=== PATIENT | female | born 1965 | race Caucasian/White ===

== ENCOUNTER 2016-07-13 05:16 | Emergency (ER) | payer BC ==
[2016-07-13 05:24] VITALS: O2SAT 99
[2016-07-13] MEDS ORDERED: Phenergan 25 MG INJ IV ONE (05:33)
[2016-07-13] MEDS ORDERED: TORAdol 30 mg Injection IV ONE (05:33)
[2016-07-13] MEDS ORDERED: TORAdol 30 mg Injection ONE (05:37)
[2016-07-13] MEDS ORDERED: Sodium Chloride 0.9% 1000 ML 1,000 ML ONE (05:37)
[2016-07-13] MEDS ORDERED: Phenergan 25 MG INJ ONE (05:37)
--- NOTE | 2016-07-13 05:38 | ERPHSYRPT ---
- History of Present Illness Time Seen by Provider: 07/13/16 05:23 Historian: patient Exam Limitations: no limitations Patient Subjective Stated Complaint: PT STATES SHE THINKS SHE IS PASSING A KIDNEY STONES. STATES SHE PASSED ON 3 WEEKS AGO. PT C/O PAIN TO RIGHT FLANK AREA AND RIGHT PELVIS. PT STATES SHE HAS VOMITED SEVERAL TIMES AT HOME. DENIES ANY DYSURIA. Triage Nursing Assessment: PT PINK, WARM, DRY. RESTLESS IN BED. PT AFEBRILE. Physician History: ABOUT 3 WEEKS AGO PT PASSED A KIDNEY STONE AND HAS HAD RIGHT FLANK PAIN/RIGHT LOWER ABDOMINAL PAIN SINCE WITH AN INCREASE IN PAIN SINCE LAST NIGHT; ADMITS TO VOMITING AND CHILLS SINCE LAST NIGHT; DENIES CHEST PAIN, FEVER, SHORTNESS OF AIR , DYSURIA. Allergies/Adverse Reactions: erythromycin base Allergy (Verified 07/13/16 05:24) Hx Tetanus, Diphtheria Vaccination/Date Given: Yes (UP TO DATE) Hx Influenza Vaccination/Date Given: No Hx Pneumococcal Vaccination/Date Given: No Immunizations Up to Date: Yes - Review of Systems Constitutional: Chills Abdominal/Gastrointestinal: Abdominal Pain, Vomiting, Other (RIGHT FLANK PAIN) All Other Systems: Reviewed and Negative - Past Medical History Pertinent Past Medical History: Yes Other Medical History: KIDNEY STONES - Past Surgical History Past Surgical History: Yes Female Surgical History: Lumpectomy - Social History Smoking Status: Never smoker Exposure to second hand smoke: No Drug Use: none Patient Lives Alone: No - Female History Hx Last Menstrual Period: PRE-MENOPAUSAL - Nursing Vital Signs Nursing Vital Signs: Initial Vital Signs Temperature 97.8 F Temperature Source Oral Pulse Rate 91 Respiratory Rate 18 Blood Pressure [] 151/82 Pain Intensity 2 - Physical Exam General Appearance: alert Eye Exam: eyes nml inspection Ears, Nose, Throat Exam: pharynx normal, moist mucous membranes Neck Exam: normal inspection Respiratory Exam: lungs clear Cardiovascular Exam: normal heart sounds Gastrointestinal/Abdomen Exam: soft, normal bowel sounds, No tenderness Back Exam: normal inspection, No rash Extremity Exam: normal inspection, No pedal edema Neurologic Exam: alert, cooperative Skin Exam: warm, dry SpO2 Interpretation: normal SpO2: 99 Oxygen Delivery: Room Air - Course Nursing assessment & vital signs reviewed: Yes - CT Exams Abdomen/Pelvis CT Interpretation: Tele-radiologist Report (MILD - MODERATE RIGHT HYDROURETERONEPHROSIS TO THE LEVEL OF A 4MM CALCULUS IN THE DISTAL RIGHT URETER. LAYERING BILIARY SLUDGE IN THE GALLBLADDER. NO EVIDENCE OF ACUTE CHOLECYSTITIS. NO BOWEL OBSTRUCTION. NORMAL APPENDIX.) Ordered Tests: Active Orders 24 hr Category Date Time Status Clean Catch Urine Specimen STAT Care 07/13/16 05:33 Active IV Insertion STAT Care 07/13/16 05:33 Active ABDOMEN AND PELVIS W/0 CONTRAS [CT] Stat Exams 07/13/16 05:33 Taken AMYLASE Stat Lab 07/13/16 05:40 Completed CBC W DIFF Stat Lab 07/13/16 05:40 Completed CMP Stat Lab 07/13/16 05:40 Completed LIPASE Stat Lab 07/13/16 05:40 Completed UA W/ MICROSCOPIC Stat Lab 07/13/16 05:40 Completed Medication Summary Generic Name Dose Route Start Last Admin Trade Name Freq PRN Reason Stop Dose Admin Sodium Chloride 1,000 mls @ 100 mls/hr 07/13/16 05:45 07/13/16 05:38 Sodium Chloride 0.9% 1000 Ml IV 08/12/16 05:44 100 mls/hr .Q10H ONEYDA Administration Potassium Chloride 20 meq 07/13/16 10:00 Potassium Chl 40 Meq/30 Ml Oral Solution PO 08/12/16 09:59 DAILY ONEYDA Discontinued Medications Generic Name Dose Route Start Last Admin Trade Name Freq PRN Reason Stop Dose Admin Hydromorphone HCl 1 mg 07/13/16 05:46 07/13/16 05:49 Dilaudid 1 Mg/Ml Injection IV 07/13/16 05:47 1 mg STAT ONE Administration Hydromorphone HCl Confirm 07/13/16 05:48 Dilaudid 1 Mg/Ml Injection Administered 07/13/16 05:49 Dose 1 mg .ROUTE .STK-MED ONE Sodium Chloride Confirm 07/13/16 05:37 Sodium Chloride 0.9% 1000 Ml Administered 07/13/16 05:38 Dose 1,000 mls @ ud .ROUTE .STK-MED ONE Ketorolac Tromethamine 30 mg 07/13/16 05:33 07/13/16 05:38 Toradol 30 Mg Injection IV 07/13/16 05:34 30 mg STAT ONE Administration Ketorolac Tromethamine Confirm 07/13/16 05:37 Toradol 30 Mg Injection Administered 07/13/16 05:38 Dose 30 mg .ROUTE .STK-MED ONE Potassium Chloride 10 meq 07/13/16 06:28 07/13/16 06:40 Klor Con 10 Meq PO 07/13/16 06:29 10 meq STAT ONE Administration Potassium Chloride Confirm 07/13/16 06:40 Klor Con 10 Meq Administered 07/13/16 06:41 Dose 10 meq PO .STK-MED ONE Promethazine HCl 12.5 mg 07/13/16 05:33 07/13/16 05:38 Phenergan 25 Mg Inj IV 07/13/16 05:34 12.5 mg STAT ONE Administration Promethazine HCl Confirm 07/13/16 05:37 Phenergan 25 Mg Inj Administered 07/13/16 05:38 Dose 25 mg .ROUTE .STK-MED ONE Lab/Rad Data: Laboratory Result Diagrams 07/13/16 05:40 07/13/16 05:40 Laboratory Results 07/13/16 07/13/16 07/13/16 Range/Units 05:40 05:40 05:40 WBC 12.1 H (4.0-10.5) K/mm3 RBC 4.96 (4.1-5.4) M/mm3 Hgb 13.5 (12.0-16.0) gm/dl Hct 39.9 (35-47) % MCV 80.4 (78-100) fl MCH 27.2 (26-32) pg MCHC 33.8 (32-36) g/dl RDW 12.7 (11.5-14.0) % Plt Count 322 (150-450) K/mm3 MPV 9.4 (6-9.5) fl Gran % 77.3 H (36.0-66.0) % Lymphocytes % 15.2 L (24.0-44.0) % Monocytes % 6.6 (0.0-12.0) % Eosinophils % 0.7 (0.00-5.0) % Basophils % 0.2 (0.0-0.4) % Basophils # 0.02 (0-0.4) Sodium 141 (136-145) mEq/L Potassium 3.4 L (3.5-5.1) mEq/L Chloride 102 (98-107) mEq/L Carbon Dioxide 27.5 (21-32) mEq/L Anion Gap 15.1 H (5-15) MEQ/L BUN 11 (9-20) mg/dL Creatinine 0.91 (0.55-1.30) mg/dl Estimated GFR > 60 ML/MIN Glucose 121 H (70-110) MG/DL Calcium 10.0 (8.5-10.1) mg/dL Total Bilirubin 1.5 H (0.2-1.0) mg/dL AST 35 (15-37) U/L ALT 39 (12-78) U/L Alkaline Phosphatase 85 (46-116) U/L Serum Total Protein 8.0 (6.4-8.2) gm/dL Albumin 4.6 (3.4-5.0) g/dL Amylase 170 H (25-115) U/L Lipase 445 H (73-393) U/L Ur Collection Type CLEAN CATCH Urine Color YELLOW (YELLOW) Urine Appearance CLEAR (CLEAR) Urine pH 5.0 (5-6) Ur Specific [place] >=1.030 (1.005-1.025) Urine Protein 30 (Negative) Urine Glucose (UA) NEGATIVE (NEGATIVE) mg/dL Urine Ketones NEGATIVE (NEGATIVE) Urine Nitrite NEGATIVE (NEGATIVE) Urine Bilirubin NEGATIVE (NEGATIVE) Urine Urobilinogen 0.2 (0-1) mg/dL Urine WBC (Auto) NEGATIVE (NEGATIVE) Urine RBC (Auto) MODERATE (0-5) Palomo/ul Urine Microscopic RBC 50-100 (0-2) /HPF Urine Microscopic WBC 0-2 (0-5) /HPF Ur Epithelial Cells MODERATE (FEW) /HPF Calcium Oxalate Crystal 2-5 (NEGATIVE) /HPF Urine Bacteria FEW (NEGATIVE) /HPF Urine Mucus MODERATE (NEGATIVE) /HPF Specimen Received [id number] - Departure Time of Disposition: 06:48 Departure Disposition: Home Clinical Impression: RIGHT RENAL COLIC, VOMITING Condition: Fair Critical Care Time: No Referrals: OFE FLETCHER MD [Primary Care Provider] - Instructions: Kidney Stones Additional Instructions: STRAIN ALL URINES. FOLLOW UP WITH DR DOYLE(UROLOGIST) - CALL [phone] TODAY FOR AN APPOINTMENT. Prescriptions: Hydrocodone Bit/Acetaminophen [[place] 7.5-325 Tablet] 1 each PO Q4H PRN PRN #20 tablet PRN Reason: Pain Ondansetron [Zofran Odt] 4 mg PO Q4H PRN PRN #20 tab.rapdis PRN Reason: Nausea/Vomiting Tamsulosin HCl 0.4 mg [Flomax 0.4 MG] 0.4 mg PO DAILY #7 cap
[2016-07-13] MEDS ORDERED: Sodium Chloride 0.9% 1000 ML 1,000 ML IV SCH (05:45)
[2016-07-13] MEDS ORDERED: Hydromorphone 1 mg/ml Ampule IV ONE (05:46)
[2016-07-13] MEDS ORDERED: Hydromorphone 1 mg/ml Ampule ONE (05:48)
[2016-07-13 05:49] LABS: BASOPHIL % 0.2 % (0.0-0.4); Eosinophil % 0.7 % (0.00-5.0); Granulocytes % 77.3 % (36.0-66.0); Lymphocytes % 15.2 % (24.0-44.0); Mean Cell Volume 80.4 fl (78-100); Mean Corpuscular Hemoglobin 27.2 pg (26-32); Mean Platelet Volume 9.4 fl (6-9.5); Monocytes % 6.6 % (0.0-12.0); Platelet Count 322 K/mm3 (150-450); Red Blood Count 4.96 M/mm3 (4.1-5.4); Red Cell Distribution Width 12.7 % (11.5-14.0); White Blood Count 12.1 K/mm3 (4.0-10.5)
[2016-07-13 06:04] LABS: Collection Type CLEAN CATCH
[2016-07-13 06:05] LABS: COMPLETE URINE MICROSCOPIC? YES
[2016-07-13 06:21] LABS: ALBUMIN 4.6 g/dL (3.4-5.0); ALKALINE PHOSPHATASE 85 U/L (46-116); ANION GAP 15.1 MEQ/L (5-15); BILIRUBIN,TOTAL 1.5 mg/dL (0.2-1.0); BLOOD UREA NITROGEN 11 mg/dL (9-20); CHLORIDE 102 mEq/L (98-107); Carbon Dioxide 27.5 mEq/L (21-32); Glucose 121 MG/DL (70-110); LIPASE 445 U/L (73-393); Potassium 3.4 mEq/L (3.5-5.1); SGOT/AST 35 U/L (15-37); SGPT/ALT 39 U/L (12-78); SODIUM 141 mEq/L (136-145)
[2016-07-13] MEDS ORDERED: Klor Con 10 MEQ PO ONE ×2 (06:28→06:40)
[2016-07-13 06:39] LABS: Mucus MODERATE /HPF (NEGATIVE)
[2016-07-13 06:40] LABS: Bacteria FEW /HPF (NEGATIVE); Epithelial Cells MODERATE /HPF (FEW); WBC 0-2 /HPF (0-5)
[2016-07-13] MEDS ORDERED: Flomax 0.4 MG ONE (06:48)
[2016-07-13] MEDS ORDERED: POTASSIUM CHL 40 MEQ/30 ML ORAL SOLUTION ONE (06:49)
[2016-07-13] MEDS ORDERED: NORCO 5/325 MG PO ONE (06:55)
[2016-07-13] MEDS ORDERED: NORCO 5/325 MG ONE (06:55)
[2016-07-13 07:07] VITALS: BP 140/84; PULSE 66
--- NOTE | 2016-07-13 08:53 | XRAY ---
Indication: Right flank pain. History of stones. Multiple contiguous axial images obtained through the abdomen and pelvis without contrast using renal stone protocol. Comparison: March 08, 2009. Lung bases clear. Heart is not enlarged. New 4 mm calculus in the distal right ureter approximately 3 cm proximal to the UVJ. More proximal right ureter is slightly prominent up to 7-8mm along with mild hydronephrosis consistent with partial obstruction. No perinephric fluid or other renal calculus. Stable tiny fatty umbilical hernia. Query gallbladder sludge without gallstones or biliary distention. Noncontrasted stomach is nonobstructed. Normal appendix. Remaining remaining liver, gallbladder, pancreas, spleen, adrenal glands, kidneys, ureters, bladder, uterus, and aorta appear unremarkable for noncontrast exam. Osseous structures intact again with double curvature scoliosis. Impression: 1. New 4 mm distal right ureteral calculus producing partial obstruction. 2. Stable tiny fatty umbilical hernia. 3. Query gallbladder sludge. Ultrasound may yield further information. Comment: Preliminary interpretation was made by [facility]. No discrepancy. CT DI 14.29
[2016-07-13] MEDS ORDERED: Flomax 0.4 MG PO SCH (10:00)
[2016-07-13] MEDS ORDERED: POTASSIUM CHL 40 MEQ/30 ML ORAL SOLUTION PO SCH (10:00)
== END 2016-07-13 07:06 | disposition home or self-care (01) ==
LOC: ED 05:16
DX: N23 Unspecified renal colic (principal); R11.10 Vomiting, unspecified; R10.31 Right lower quadrant pain
CPT/HCPCS: 36000; 36415; 74176; 80053; 81000; 82150; 83690; 85025; 96360; 96374; 96375; 99283; J1170; J1885; J2550

== ENCOUNTER 2017-03-29 11:28 | Day surgery (SDC) | payer BC ==
--- NOTE | 2017-03-29 09:42 | HP ---
DATE OF SURGERY: 03/29/2017 HISTORY OF PRESENT ILLNESS: The patient is a 52 year-old with some epigastric fullness diaphragm area, had belching. No behzad vomiting. It felt like something caught in the diaphragm area. Gallbladder ultrasound negative. HIIDA scan was normal per the patient. She had the report from the office. PAST SURGICAL HISTORY: Hysteroscopy and uteroscopy in the past. MEDICATIONS: Indapamide, baby aspirin, Klor-Con. ALLERGIES: ERYTHROMYCIN, FLOMAX. FAMILY HISTORY: Cancer. SOCIAL HISTORY: No smoking or alcohol abuse. REVIEW OF SYSTEMS: Twelve systems reviewed per preadmission questionnaire. She also said she has borderline hypertension. She had seen Dr. Rai Harrell in the past. She said she has a PFO found on echocardiogram in the past otherwise no history of ischemic or cardiomyopathy in the past. LAB DATA AND TESTS: She had a normal gallbladder ultrasound showed gallbladder ejection fraction 69%. PHYSICAL EXAMINATION: GENERAL: No acute distress. HEENT: Sclerae nonicteric. NECK: No JVD. CHEST: Equal excursion, nonlabored breathing. CVS: Regular rate and rhythm. ABDOMEN: Soft. No peritoneal signs. EXTREMITIES: No significant edema. NEURO: Alert, oriented, moving extremities symmetrically. No gross motor deficits noted. IMPRESSION: Some epigastric fullness, bloating, belching, feeling like something is caught. I feel she needs upper endoscopy for further evaluation, reflux, peptic ulcer disease, esophagitis or other etiology to evaluate for possible narrowed area that might need dilatation. Therefore I recommend upper endoscopy possible biopsy, possible esophageal dilatation if indicated at the time. Risks and benefits explained in detail including but not limited to bleeding or infection, small risk of bowel injury or perforation possibly requiring open procedure, small risk of missed or nondiagnosis or incomplete exam possibly requiring barium enema, other studies or procedures, general risk of anesthesia or sedation, risk if needing dilatation at the time risk of bowel injury or perforation possibly requiring further procedure but not limited to. She understands and agrees to the planned procedure and will proceed with EGD possible biopsy, possible dilatation as an outpatient.
[~2017-03-29 11:28] MED LIST: Lactated Ringers 1,000 ML IV SCH
[2017-03-29] MEDS ORDERED: DIPRIVAN 200 MG/20 ML IV ONE (11:29)
[2017-03-29] MEDS ORDERED: Versed 2 MG/2 ML Injection IV ONE (11:29)
[2017-03-29] MEDS ORDERED: Lactated Ringers 1,000 ML IV ONE (11:39)
[2017-03-29 13:34] VITALS: O2SAT 96
[2017-03-29 13:35] VITALS: PULSE 62
[2017-03-29 13:51] VITALS: BP 129/78
--- NOTE | 2017-03-29 14:12 | OP ---
SURGERY DATE/TIME: 03/29/2017 1222 PREOPERATIVE DIAGNOSES: 1) History of esophageal pressure, belching, burning radiating up towards chest unclear etiology. 2) History of negative gallbladder work up. POSTOPERATIVE DIAGNOSES: 1) Mild erosive gastritis. 2) Distal esophagitis with distal esophageal narrowing. PROCEDURES: 1) EGD with cold biopsy of small bowel to evaluate for celiac sprue. 2) Cold biopsy of antrum to evaluate for Helicobacter pylori. 3) Cold biopsy distal esophagus as well to evaluate esophagitis. 4) Cold biopsy mid esophagus to evaluate for eosinophilic esophagitis. 5) Esophageal balloon dilatation distal esophagus (size 20 balloon dilator). SURGEON: Dr. Mark Hussein. ANESTHESIA: MAC. ESTIMATED BLOOD LOSS: Minimal. INDICATIONS: As noted above. Risks and benefits explained in detail and not limited to and consent obtained. The patient had prior negative gallbladder work up of her epigastric pressure and belching. I feel she would benefit from upper endoscopy for evaluation. She feels like sometimes things getting stuck or gas pocket in distal esophagus area. Risks and benefits explained in detail but not limited to and consent obtained. DESCRIPTION OF PROCEDURE AND FINDINGS: The patient is taken to the endoscopy suite. MAC anesthesia introduced. After official time out and no disagreement with planned procedure, a bite block positioned. Video gastroscope easily passed down the proximal esophagus. Distal esophagus did have a slight narrowing and spasm in the area and did have some signs of some esophagitis. The scope was passed through this area. Pylorus is patent and given the vague nature of her symptoms cold biopsy taken in the small bowel to evaluate for celiac sprue although there are no signs of any obvious ulcers or masses in the proximal small bowel. Back in the stomach she did have some mild erosive gastritis with some small little aphthous erosions, nothing deep enough to call an ulcer at this time. On retroflex the gastroesophageal junction seemed to be snug at the scope. No signs of any obvious hiatal hernia. There were no signs of any obvious masses or mucosal lesions in the stomach. Scope pulled back to gastroesophageal junction. It was about 40 cm. It did appear to have some evidence of some mild erosive esophagitis. Cold biopsy taken for further evaluation. Otherwise she did have a narrowed area. Given her symptoms it was felt that this warranted a trial of dilatation given this distal esophageal narrowing and spasm. The remainder of esophagus fairly unremarkable just some occasional tertiary contractions but otherwise no signs of any obvious masses. The scope passed back down into the stomach. Balloon catheter carefully inserted under direct vision of the stomach in the open area and then pulled back up to the narrowed area in question in distal esophagus and gradually inflated first stage 30 to 45 seconds size 18 and size 19 for 30 to 45 seconds and finally size 20 balloon dilator up for 2 minutes. The balloon is then released and withdrawn. The scope was passed through the area which appeared to be much more widely patent at this point. Back in the stomach slowly carefully withdrawn there are no signs of any evidence of any full thickness issues or injury secondary to dilatation. The remainder of esophagus fairly unremarkable. There were some tertiary contractions. Given her vague symptom complaint cold biopsy taken in the esophagus to evaluate for eosinophilic esophagitis or microscopic esophagitis or other etiology or symptoms. Good hemostasis noted. The remainder of the esophagus grossly unremarkable. The scope was withdrawn. The patient tolerated the procedure well. Findings discussed with the family out in the waiting area. I will see her back in the office next week to go over the results.
== END 2017-03-29 14:01 | disposition home or self-care (01) ==
LOC: SDC 11:28
PROVIDERS: ATTEND Surgery
PROC: 0DB38ZX Excision of Lower Esophagus, Via Natural or Artificial Opening Endoscopic, Diagnostic (ICD-10-PCS; principal; 2017-03-29)
PROC: 0DB88ZX Excision of Small Intestine, Via Natural or Artificial Opening Endoscopic, Diagnostic (ICD-10-PCS; 2017-03-29)
PROC: 0DB78ZX Excision of Stomach, Pylorus, Via Natural or Artificial Opening Endoscopic, Diagnostic (ICD-10-PCS; 2017-03-29)
PROC: 0DB28ZX Excision of Middle Esophagus, Via Natural or Artificial Opening Endoscopic, Diagnostic (ICD-10-PCS; 2017-03-29)
PROC: 0D718ZZ Dilation of Upper Esophagus, Via Natural or Artificial Opening Endoscopic (ICD-10-PCS; 2017-03-29)
DX: K29.00 Acute gastritis without bleeding (principal); K20.9 Esophagitis, unspecified; K22.2 Esophageal obstruction
CPT/HCPCS: 00740; 36415; 87081; 88305; C1726; J2250; J2704